=== PATIENT | female | born 1990 | race Caucasian/White ===

== ENCOUNTER 2016-08-14 12:44 | Emergency (ER) | payer MEDICAID ==
[~2016-08-14] VITALS: Ht 154.9 cm; Wt 69.4 kg
[2016-08-14 13:33] VITALS: BP 122/74
--- NOTE | 2016-08-14 15:12 | NUR ---
PT TO BED 5 AT THIS TIME
--- NOTE | 2016-08-14 15:15 | NUR ---
PATIENT PRESENTS TO ED WITH C/O LEFT BREAST PAIN X3 WKS--WORSENING , INCREASING PAIN TO LEFT UPPER CHEST/AXILLA AREA. DENIES N/V/D; SKIN IS PINK/WARM/DRY; AAOX4 WITH EVEN AND STEADY GAIT; LUNGS CLEAR BL; HR EVEN AND REGULAR; PT DENIES ANY FEVER, CP, SOB, OR COUGH AT THIS TIME; PATIENT STATES PAIN OF 7/10 AT THIS TIME; VSS; PATIENT POSITIONED FOR COMFORT; HOB ELEVATED; BEDRAILS UP X2; BED DOWN. ER MD MADE AWARE OF PT STATUS.
[2016-08-14] MEDS ORDERED: KETOROLAC 60 MG/2 ML VIAL IM ONE (16:45)
[2016-08-14 17:17] VITALS: BP 110/70
--- NOTE | 2016-08-14 17:17 | NUR ---
Patient discharged with v/s stable. Written and verbal after care instructions given and explained. Patient alert, oriented and verbalized understanding of instructions. Ambulatory with steady gait. All questions addressed prior to discharge. ID band removed. Patient advised to follow up with PMD. Rx of CIPRO, MOTRIN, NORCO given. Patient educated on indication of medication including possible reaction and side effects. Opportunity to ask questions provided and answered.
== END 2016-08-14 17:17 | disposition home or self-care (01) ==
LOC: MED 12:44
DX: N64.4 Mastodynia (principal); N39.0 Urinary tract infection, site not specified; R06.02 Shortness of breath
CPT/HCPCS: 71020; 81002; 81025; 96372; 99284; J1885

== ENCOUNTER 2017-05-06 00:41 | Emergency (ER) | payer MEDICAID, OTHER ==
[~2017-05-06] VITALS: Ht 154.9 cm; Wt 65.0 kg
[2017-05-06 00:47] VITALS: BP 87/62
--- NOTE | 2017-05-06 00:52 | NUR ---
PT TAKEN TO BED 7
--- NOTE | 2017-05-06 01:15 | NUR ---
26/F PRESENTS TO ER C/O PAIN TO RT INDEX FINGER. PT STATES SHE CLOSED THE TRUCK DOOR ON HER FINGER. PAIN IS SHARP, STABBING, 6/10, NON RADIATING. PT IS ABLE TO MOVE EXTREMITY AND HAS + SENSATION. SMALL AMOUNT OF BLOOD NOTED AROUND NAIL BED. PT IN BED WITH AT BEDSIDE.
--- NOTE | 2017-05-06 01:26 | NUR ---
Patient being evaluated by Dr. Leija at bedside.
--- NOTE | 2017-05-06 01:51 | NUR ---
Patient discharged with v/s stable. Written and verbal after care instructions given and explained. Patient verbalized understanding. Ambulatory with steady gait. All questions addressed prior to discharge. Advised to follow up with PMD.
[2017-05-06 01:56] VITALS: BP 87/62
== END 2017-05-06 01:51 | disposition home or self-care (01) ==
LOC: MED 00:41
DX: O71.89 Other specified obstetric trauma (principal)
CPT/HCPCS: 99281